=== PATIENT | male | born 1985 | race Caucasian/White ===

== ENCOUNTER 2022-03-12 13:08 | Emergency (ER) | payer OTHER ==
[~2022-03-12] VITALS: Ht 175.3 cm; Wt 116.1 kg
[2022-03-12 13:36] VITALS: BP 159/99
--- NOTE | 2022-03-12 13:47 | NUR ---
37 y/o male, pt states he was at work lifting tire and felt a "snap" on left arm. pt now c/o left arm pain. no obvious deformity, loss of sensation or limited rom on extremity. skin intact, is pink/warm/dry. a&o x4 with even and steady gait. lungs clear bl, heart rate even and regular. pt denies any fever, cp, sob, or cough at this time. pt states pain is 8/10 at this time. patient positioned for comfort. hob elevated. bed down. ermd made aware of pt. pmh: dm2 nka med: denies
[2022-03-12] MEDS ORDERED: KETOROLAC 60 MG/2 ML VIAL IM ONE (14:10)
[2022-03-12] MEDS ORDERED: IBUP-2213 PO (14:55)
[2022-03-12] MEDS ORDERED: ACET-8386 PO (14:55)
[2022-03-12 15:02] VITALS: BP 159/99
--- NOTE | 2022-03-12 15:03 | NUR ---
Patient discharged with v/s stable. Written and verbal after care instructions given and explained. Patient alert, oriented and verbalized understanding of instructions. Ambulatory with spouse to car. All questions addressed prior to discharge. ID band removed. Patient advised to follow up with PMD. Rx of ibuprofen, hydrocodone(sent) given. Patient educated on indication of medication including possible reaction and side effects. Opportunity to ask questions provided and answered. copy of work comp given
== END 2022-03-12 15:02 | disposition home or self-care (01) ==
LOC: MED 13:08
DX: M25.521 Pain in right elbow (principal); E11.9 Type 2 diabetes mellitus without complications
CPT/HCPCS: 96372; 99283; J1885

== ENCOUNTER 2023-04-05 16:45 | Emergency (ER) | payer MEDICAID, OTHER ==
[~2023-04-05] VITALS: Ht 175.3 cm; Wt 96.6 kg
[~2023-04-05 16:45] MED LIST: ACET-8905 PO; IBUP-2213 PO
[2023-04-05 16:58] VITALS: BP 138/72; PULSE 79; RESP 20; TEMP 96.7; O2SAT 99
[2023-04-05] MEDS ORDERED: KETOROLAC 30 MG/ML VIAL IM ONE (19:10)
[2023-04-05] MEDS ORDERED: HYDROcodone/APAP 7.5/325 MG 1 TAB PO ONE (19:10)
[2023-04-05] MEDS ORDERED: KETOROLAC 30 MG/ML VIAL ONE (19:22)
[2023-04-05] MEDS ORDERED: HYDROcodone/APAP 7.5/325 MG 1 TAB ONE (19:22)
--- NOTE | 2023-04-05 19:26 | NUR ---
TORADOL 30 MG IM,RT DELTOID, HYDROCODONE 7.5MG/320MG PO, GIVEN. PATIENT TOLERATED WELL. PAIN LEVEL 10/10 SHARP
[2023-04-05] MEDS ORDERED: ACET-8905 PO (20:07)
[2023-04-05] MEDS ORDERED: LID5T TP (20:07)
[2023-04-05] MEDS ORDERED: IBUP-2213 PO (20:07)
--- NOTE | 2023-04-05 20:25 | NUR ---
Patient discharged with v/s stable. Written and verbal after care instructions given and explained. Patient verbalized understanding. Ambulatory with steady gait. All questions addressed prior to discharge. Advised to follow up with PMD.
== END 2023-04-05 20:25 | disposition home or self-care (01) ==
LOC: MED 16:45
DX: S39.012A Strain of muscle, fascia and tendon of lower back, initial encounter (principal); M54.16 Radiculopathy, lumbar region; R03.0 Elevated blood-pressure reading, without diagnosis of hypertension; E11.9 Type 2 diabetes mellitus without complications; Z79.899 Other long term (current) drug therapy; X58.XXXA Exposure to other specified factors, initial encounter; Y93.89 Activity, other specified; Y92.89 Other specified places as the place of occurrence of the external cause; Y99.8 Other external cause status
CPT/HCPCS: 99281; J1885